=== PATIENT | male | born 1975 | race Asian ===

== ENCOUNTER 2019-05-02 17:56 | Emergency (ER) | payer BC ==
[~2019-05-02] VITALS: Ht 175.3 cm; Wt 79.4 kg
[2019-05-02 18:04] VITALS: Ht 175.3 cm; Wt 79.4 kg
[2019-05-02 23:12] VITALS: BP 101/71
== END 2019-05-02 23:12 | disposition home or self-care (01) ==
LOC: ED 17:56
DX: S52.501A Unspecified fracture of the lower end of right radius, initial encounter for closed fracture (principal); W18.30XA Fall on same level, unspecified, initial encounter; Y93.89 Activity, other specified; Y92.89 Other specified places as the place of occurrence of the external cause; Y99.8 Other external cause status
CPT/HCPCS: J2001; Q0092